=== PATIENT | male | born 1995 | race Caucasian/White ===

== ENCOUNTER 2017-04-30 10:59 | Emergency (ER) | payer OTHER ==
[2017-04-30 13:10] VITALS: BP 129/84
--- NOTE | 2017-04-30 14:32 | UC ---
UC General HPI - HPI Summary HPI Summary: NAUSEA VOMITING AND DIARRHEA FOR TWO DAYS. NO FEVER. NO ABDOMINAL PAIN. NO CHEST PAIN. NO SORE THROAT. NO SHORTNESS OF BREATH. - History of Current Complaint Chief Complaint: UCGeneralIllness Stated Complaint: NAUSEA Time Seen by Provider: 04/30/17 12:53 Hx Obtained From: Patient Onset/Duration: Gradual Onset, Lasting Days, Still Present Onset Severity: Mild Current Severity: Mild Pain Intensity: 0 Associated Signs & Symptoms: Positive: Diarrhea, Nausea, Vomiting. Negative: Back Pain, Confusion, Cough, Chest Pain, Dizziness, Dysuria, Decreased Oral Intake, Diaphoresis, Fever, Headache, Melena, Syncope, SOB, Trauma, Wheezing, Weakness - Allergy/Home Medications Allergies/Adverse Reactions: Allergies Allergy/AdvReac Type Severity Reaction Status Date / Time Erythromycin Allergy Intermediate Rash Verified 04/30/17 11:09 PMH/Surg Hx/FS Hx/Imm Hx Previously Healthy: Yes - Surgical History Surgical History: Yes Surgery Procedure, Year, and Place: tonsilectomy, tumor removed over right eye, wisdom teeth - Family History Known Family History: Negative: Renal Disease - Social History Occupation: Employed Full-time Lives: With Family Alcohol Use: None Substance Use Type: None Substance Use Comment - Amount & Last Used: states last used 6 months ago Smoking Status (MU): Never Smoked Tobacco Review of Systems Constitutional: Negative Skin: Negative Eyes: Negative ENT: Negative Respiratory: Negative Cardiovascular: Negative Gastrointestinal: Vomiting, Diarrhea Genitourinary: Negative Motor: Negative Neurovascular: Negative Musculoskeletal: Negative Neurological: Negative Psychological: Negative All Other Systems Reviewed And Are Negative: Yes Physical Exam Triage Information Reviewed: Yes Appearance: Well-Appearing, No Pain Distress, Well-Nourished Vital Signs: Initial Vital Signs Temp 98.1 F 04/30/17 11:10 Pulse 76 04/30/17 11:10 Resp 16 04/30/17 11:10 BP 130/81 04/30/17 11:10 Pulse Ox 95 04/30/17 11:10 Vital Signs Reviewed: Yes Eye Exam: Normal ENT Exam: Normal ENT: Positive: Normal ENT inspection, Hearing grossly normal, Pharynx normal, TMs normal Dental Exam: Normal Neck exam: Normal Neck: Positive: Supple, Nontender, No Lymphadenopathy Respiratory Exam: Normal Respiratory: Positive: Chest non-tender, Lungs clear, Normal breath sounds, No respiratory distress, No accessory muscle use Cardiovascular Exam: Normal Cardiovascular: Positive: RRR, No Murmur, Pulses Normal Abdominal Exam: Normal Abdomen Description: Positive: Nontender, No Organomegaly, Soft Musculoskeletal Exam: Normal Neurological Exam: Normal Psychological Exam: Normal Skin Exam: Normal Course/Dx - Differential Dx - Multi-Symptom Differential Diagnoses: Metabolic Abnormality, Sepsis, Urinary Tract Infection Provider Diagnoses: GASTROENTERITIS Discharge - Discharge Plan Condition: Stable Disposition: HOME Prescriptions: Ondansetron ODT TAB* [Zofran 4 MG Odt TAB*] 4 mg PO Q8H PRN #9 tab.odt PRN Reason: Vomiting Patient Education Materials: Gastroenteritis (ED), Acute Nausea and Vomiting ( ED) Forms: *Work Release Referrals: [facility] [Outside] No Primary Care Phys,NOPCP [Primary Care Provider] -
== END 2017-04-30 13:17 | disposition home or self-care (01) ==
LOC: UCCORT 10:59
DX: K52.9 Noninfective gastroenteritis and colitis, unspecified (principal); Z88.1 Allergy status to other antibiotic agents
CPT/HCPCS: 99212; G0463

== ENCOUNTER 2019-09-23 07:19 | Emergency (ER) | payer BC, OTHER ==
[2019-09-23 07:30] VITALS: BP 143/81
--- NOTE | 2019-09-23 07:58 | UC ---
Eye Complaint HPI - HPI Summary HPI Summary: 24 yo male with swollen left upper eyelid x 1 month no visual c/o no fever no purulent d/c - History of Current Complaint Chief Complaint: UCEye Stated Complaint: L EYE COMP Time Seen by Provider: 09/23/19 07:52 Hx Obtained From: Patient Onset/Duration: Gradual Onset, Lasting Weeks Timing: Constant Severity Initially: Mild Severity Currently: Mild Pain Intensity: 0 Pain Scale Used: 0-10 Numeric Location of Injury: Eye Lid (upper) Aggravating Factor(s): Nothing Alleviating Factor(s): Nothing Associated Signs And Symptoms: Positive: Swelling Eyes: 1 - chalazion 2 - chalazion - Allergies/Home Medications Allergies/Adverse Reactions: Allergies Allergy/AdvReac Type Severity Reaction Status Date / Time erythromycin base Allergy Rash Verified 09/23/19 07:30 PMH/Surg Hx/FS Hx/Imm Hx Previously Healthy: Yes - Surgical History Surgical History: Yes Surgery Procedure, Year, and Place: tonsilectomy, tumor removed over right eye, wisdom teeth - Family History Known Family History: Negative: Cardiac Disease, Hypertension, Renal Disease - Social History Alcohol Use: Occasionally Substance Use Type: None Substance Use Comment - Amount & Last Used: states last used 6 months ago Smoking Status (MU): Never Smoked Tobacco Review of Systems All Other Systems Reviewed And Are Negative: Yes Constitutional: Positive: Negative Skin: Positive: Negative Eyes: Positive: Other - left lid swelling ENT: Positive: Negative Respiratory: Positive: Negative Cardiovascular: Positive: Negative Gastrointestinal: Positive: Negative Genitourinary: Positive: Negative Motor: Positive: Negative Neurovascular: Positive: Negative Musculoskeletal: Positive: Negative Neurological: Positive: Negative Psychological: Positive: Negative Physical Exam Triage Information Reviewed: Yes Appearance: Well-Appearing, No Pain Distress, Well-Nourished Vital Signs: Initial Vital Signs Temp 97.7 F 09/23/19 07:28 Pulse 59 09/23/19 07:28 Resp 18 09/23/19 07:28 BP 143/81 09/23/19 07:28 Pulse Ox 99 09/23/19 07:28 Vital Signs Reviewed: Yes Eyes: Positive: Conjunctiva Clear ENT: Positive: Hearing grossly normal. Negative: Nasal congestion, Nasal drainage, Trismus, Muffled voice, Hoarse voice Dental Exam: Normal Neck: Positive: Supple, Nontender, No Lymphadenopathy Respiratory: Positive: Lungs clear, Normal breath sounds, No respiratory distress, No accessory muscle use Cardiovascular: Positive: RRR Musculoskeletal: Positive: ROM Intact, No Edema Neurological: Positive: Alert Psychological Exam: Normal Skin Exam: Normal Eye Complaint Course/Dx - Differential Dx/Diagnosis Provider Diagnosis: Chalazion left upper eyelid, Elevated BP without diagnosis of hypertension Discharge ED - Sign-Out/Discharge Documenting (check all that apply): Patient Departure All imaging exams completed and their final reports reviewed: No Studies - Discharge Plan Condition: Stable Disposition: HOME Prescriptions: Cephalexin CAP* [Keflex CAP*] 500 mg PO QID #28 cap Patient Education Materials: Chalazion (ED) Referrals: [facility] [Outside] - If Needed (BP a little . Needs rechecking in 2-6 months) Additional Instructions: warm compresses see your eye doctor next week you may need to have these attended to with surgery - Billing Disposition and Condition Condition: STABLE Disposition: Home
== END 2019-09-23 08:06 | disposition home or self-care (01) ==
LOC: UCCORT 07:19
DX: H00.12 Chalazion right lower eyelid (principal); R03.0 Elevated blood-pressure reading, without diagnosis of hypertension; Z88.1 Allergy status to other antibiotic agents
CPT/HCPCS: 99212; G0463

== ENCOUNTER 2019-11-10 10:09 | Emergency (ER) | payer BC ==
[2019-11-10 11:19] VITALS: BP 121/76
--- NOTE | 2019-11-10 11:43 | UC ---
Throat Pain/Nasal Moses HPI - HPI Summary HPI Summary: Patient is 24-year-old male presenting with sore throat, and nasal congestion, postnasal drip, and headache 2 days. Patient also notes night sweats last night. Denies fever, chills, body aches. Denies nausea and vomiting. Patient states all coworkers have been sick recently and states concern for strep throat. Denies taking anything for symptom relief. - History of Current Complaint Chief Complaint: UCGeneralIllness Stated Complaint: SORE THROAT, COUGH, HEAD CONGESTION Hx Obtained From: Patient Pain Intensity: 6 Pain Scale Used: 0-10 Numeric - Allergies/Home Medications Allergies/Adverse Reactions: Allergies Allergy/AdvReac Type Severity Reaction Status Date / Time erythromycin base Allergy Severe Rash Verified 11/10/19 11:13 PMH/Surg Hx/FS Hx/Imm Hx Previously Healthy: Yes - Surgical History Surgical History: Yes Surgery Procedure, Year, and Place: tonsilectomy, tumor removed over right eye, wisdom teeth - Family History Known Family History: Negative: Cardiac Disease, Hypertension, Renal Disease - Social History Alcohol Use: Occasionally Substance Use Type: None Substance Use Comment - Amount & Last Used: states last used 6 months ago Smoking Status (MU): Never Smoked Tobacco Review of Systems All Other Systems Reviewed And Are Negative: Yes Constitutional: Positive: Negative. Negative: Fever, Chills ENT: Positive: Sore Throat, Nasal Discharge - PND, Sinus Congestion. Negative: Ear Ache, Sinus Pain/Tenderness Respiratory: Positive: Negative. Negative: Cough Cardiovascular: Positive: Negative Gastrointestinal: Positive: Negative Musculoskeletal: Negative: Myalgia Neurological: Positive: Headache Physical Exam Triage Information Reviewed: Yes Appearance: Well-Appearing, No Pain Distress, Well-Nourished Vital Signs: Initial Vital Signs Temp 97.7 F 11/10/19 11:10 Pulse 68 11/10/19 11:10 Resp 18 11/10/19 11:10 BP 121/76 11/10/19 11:10 Pulse Ox 100 11/10/19 11:10 Lab Results 11/10/19 11/10/19 Range/Units 12:05 12:06 Influenza A (Rapid) Negative (Negative) Influenza B (Rapid) Negative (Negative) Group A Strep Rapid Negative (Negative) Vital Signs Reviewed: Yes Eyes: Positive: Conjunctiva Clear ENT: Positive: Hearing grossly normal, Pharyngeal erythema, Nasal congestion, Nasal drainage - PND, TMs normal, Uvula midline. Negative: Tonsillar swelling, Tonsillar exudate, Trismus, Muffled voice, Hoarse voice, Sinus tenderness Neck exam: Normal Neck: Positive: Supple, Nontender, No Lymphadenopathy Respiratory Exam: Normal Respiratory: Positive: Lungs clear, Normal breath sounds, No respiratory distress Cardiovascular Exam: Normal Cardiovascular: Positive: RRR Neurological: Positive: Alert Psychological: Positive: Age Appropriate Behavior Skin Exam: Normal Throat Pain/Nasal Course/Dx - Course Course Of Treatment: NEgative rapid strep and flu tests. Discussed viral illness and symptomatic treatment. Instructed to follow up with pcp if symptoms persist. Patient voiced understanding and agreed with treatment plan. - Differential Dx/Diagnosis Differential Diagnosis/HQI/PQRI: Pharyngitis, Sinusitis Provider Diagnosis: Viral URI Discharge ED - Sign-Out/Discharge Documenting (check all that apply): Patient Departure All imaging exams completed and their final reports reviewed: No Studies - Discharge Plan Condition: Stable Disposition: HOME Patient Education Materials: Upper Respiratory Infection (ED) Forms: *Work Release Referrals: [facility] [address] [Outside] - If Needed [facility] [place] [facility] [Outside] - If Needed Additional Instructions: As discussed, you rapid strep and flu tests were negative today. Your symptoms are likely caused by a virus and should resolve without treatment. Throat lozenges, throat sprays, and tea with honey may help alleviate sore throat. You may use nasal saline spray or Flonase as directed for symptomatic relief. You may take ibuprofen as directed for pain relief. Get plenty of rest and fluids. Follow up with your primary care doctor or one of the referrals listed below if your symptoms worsen or do not resolve within 7-10 days. - Billing Disposition and Condition Condition: STABLE Disposition: Home
[2019-11-10 12:16] LABS: Influenza A Molecular NEGATIVE (Negative); Influenza B Molecular NEGATIVE (Negative)
== END 2019-11-10 12:31 | disposition home or self-care (01) ==
LOC: UCCORT 10:09
DX: J06.9 Acute upper respiratory infection, unspecified (principal); R09.82 Postnasal drip; Z88.1 Allergy status to other antibiotic agents
CPT/HCPCS: 87651; 99211; G0463